=== PATIENT | female | born 1935 | race Caucasian/White ===

== ENCOUNTER 2019-06-06 21:03 | Inpatient (IN) | payer MEDICARE, OTHER ==
[~2019-06-06] VITALS: Ht 165.1 cm; Wt 65.5 kg
[~2019-06-06 21:03] MED LIST: ADVIL PM CAPLE1 EACH PO; ADVIL200 M1 PO; ALENDRONATE SOD70 MG PO; ALIVE WOMEN'S1 EAC1 PO; LETROZOLE2.5 MG PO; MELATONIN1 MG PO; MIRALAX17 GM PO; NORCO 5-325 TA1 EACH PO; OXYCODON-ACETA1 EAC2 PO; VITAMIN D1000 UNI1 PO
[2019-06-06] MEDS ORDERED: TAMOXIFEN CITRA20 MG PO (23:03)
--- NOTE | 2019-06-06 23:03 | NUR ---
ENROLLED AGENT WAS CALLED IN AFTER PT WAS BROUGHT IN FOR STROKE SYMPTOMS. 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 INITIALLY I WAS CALLED IN IN CASE PT WAS SENT OUT OF HOSPITAL FOR CARE ELSEWHERE. I CAME IN TO MAKE SURE THAT THE PT'S DAUGHTER HAD THE CARE THAT SHE NEEDED. 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 PT IS DOING WELL EMOTIONALLY AT THIS POINT AND HAD SOME VISITORS WELL. PER THE PT'S REQUEST I LET HER FAMILY KNOW WHAT WAS GONIG ON, INCLUDING THAT SHE WOULD BE STAYING AT LEAST OVERNIGHT. I WILL HAVE THE IN HOUSE ENROLLED AGENT CONTACT THE PT AND HER FAMILY TOMORROW.
--- NOTE | 2019-06-06 23:46 | NUR ---
PT ADMITTED TO ROOM 120 VIA STRETCHER FROM ED. PT TRANSFERRED WITH 1 ASSIST TO BED, SLIGHT GAIT ON L SIDE NOTED, SPEECH CLEAR, ANSWERING CORRECTLY, MINOR L SIDED MOUTH DROPPINES NOTED. TELE#[address], DENIES SOB OR CP , COOPERATIVE WITH ASSESSMENT. ORIENTED TO HOSP ROOM AND ROUTINE. CONCERNED ABOUT TAMOXIFEN MEDS NOT BEING TAKEN TONIGHT, RADHA SENT TO RX AND FOR MD TO ASSESS IN AM. PT AWARE TO CALL IF NEEDING TO GET UP, STATED UNDERSTANDING
--- NOTE | 2019-06-07 00:25 | NUR ---
TOOK OVER FOR RODNEY BOXING INSPECTOR TO DO INTAKE ASSESSMENT. PATIENT SAYS, SHE FEELS BASICALLY BACK TO NORMAL, OTHER THAN SOME SLIGHT LEFT FACIAL DROOP AND A LITTLE NUMBNESS ON THE LEFT SIDE OF HER TOUNGE. A+O, HAVING NO PAIN, MOVES WELL AND JUST WANTS TO TRY AND GET SOME SLEEP.
--- NOTE | 2019-06-07 01:16 | NUR ---
PATIENT JUST CALLED TO GO TO THE BATHROOM. DECEMBER, LIVE HELPING PATIENT TO THE REST ROOM WITH A FWW.
--- NOTE | 2019-06-07 03:25 | NUR ---
PATIENT SAYS SHE IS DOING OK, BUT HAS NOT BEEN ABLE TO SLEEP SINCE IT IS A NEW PLACE. HAVING NO DEFICITS AT THIS TIME. INFORMED HER WE WOULD DO VS IN ABOUT AN HOUR. PATIENT VERBALIZED UNDERSTANDING.
--- NOTE | 2019-06-07 05:15 | NUR ---
PATIENT HAS DONE WELL SINCE ARRIVAL JUST A LITTLE LEFT FACIAL DROOP AND SOME SLIGHT NUMBNESS ON THE LEFT SIDE OF THE TOUNGE. PATIENT HASN'T REALLY SLEPT SHE IS IN A NEW PLACE AND IS USING A WALKER FOR SAFETY EVEN THOUGH SHE IS PRETTY STEADY ON HER FEET. HAVING NO PAIN AND ALERT AND ORIENTED AND HER B/P HAS COME DOWN. JUST RESTING IN BED AWAKE AT THIS TIME.
--- NOTE | 2019-06-07 07:04 | NUR ---
PATIENT WAS JUST UP TO THE BATHROOM AND HER SPEECH IS A LITTLE SLURRED THIS AM AND SHE HAS CRAMPING IN HER LEGS AND SEEMS TOO BE PROTECTING HER LEFT ARM, AND IT LOKS LIKE SHE IS HAVING A LITTLE BIT OF A HARD TIME USING IT. WILL PASS THIS ON NOW IN REPORT, PATIENT SAYS HER VISION IS FINE TO THE LEFT AND THAT SHE CAN SEE TO HER LEFT PERIPHHERALLY, BUT I'M NO SURE HOW WELL.
--- NOTE | 2019-06-07 07:36 | NUR ---
PATIENT RESTING IN BED. PATIENT'S BREAKFAST ORDERED. CALL LIGHT WITHIN REACH. NO OTHER NEEDS AT THIS TIME
--- NOTE | 2019-06-07 07:53 | NUR ---
PATIENT AWAKE AND LAYING IN BED. ASSESSMENT COMPLETED. PATIENT HAS LEFT SIDED FACIAL DROOP, PAIN ON THE LEFT SIDE OF HER TONGUE, LEFT SIDED WEAKNESS IN HER UPPER AND LOWER EXTREMITIES, SLURRED SPEECH, AND UNABLE TO COMPLETE A FINGER NOSE PROPRIOCEPTIVE TEST ON HER LEFT SIDE. HER BP IS 172/78 (100), PULSE OF 70, TEMP OF 97.8, AND SPO2 OF 96% ON RA. DR. CRAFT NOTIFIED OF PATIENT CONDITION AND RESPONDS THAT HE WILL BE TO THE FLOOR TO SEE THE PATIENT.
--- NOTE | 2019-06-07 08:15 | NUR ---
DR. CRAFT TO BEDSIDE TO ASSESS PATIENT. PLAN OF CARE DISCUSSED WITH PATIENT. NEW ORDERS RECEIVED. PATIENT AGREEABLE TO POC. CALL LIGHT WITHIN REACH.
--- NOTE | 2019-06-07 09:00 | NUR ---
PATIENT UP TO CHAIR FOR BREAKFAST, ATE 50% OF MEAL. NURSE BEDSIDE SWALLOW EVAL PERFORMED. PATIENT WITH MILD DYSPHAGIA AND ASPIRATION PRECAUTIONS INITIATED. PATIENT DENIES ANY FURTHER NEEDS AT THIS TIME, CALL LIGHT WITHIN REACH.
--- NOTE | 2019-06-07 09:15 | NUR ---
PATIENTS DAUGHTER SHANNON CALLED FOR UPDATE ON PATIENT. CONDITION AND PLAN OF CARE DISCUSSED.
--- NOTE | 2019-06-07 09:18 | NUR ---
PATIENT SITTING UP IN CHAIR. VITAL SIGNS AND I&O DONE. CALL LIGHT WITHIN REACH. NO OTHER NEEDS AT THIS TIME
--- NOTE | 2019-06-07 09:50 | NUR ---
SPOKE WITH PATIENT IN ROOM. PATIENT UP IN CHAIR, WITH BREAKFAST TRAY IN FRONT OF HER. PATIENT WAS CRYING WHEN I ENTERED ROOM. PATIENT FEELING OVERWHELMED WITH DIAGNOSIS. SAT WITH PATIENT FOR ABOUT 30 MINUTES TALKING ABOUT DIAGNOSIS, WHAT TO EXPECT NEXT, THERAPY POSSIBILITIES ETC. PATIENTS DISTRESS COMES MOSTLY FROM HER WORRY OVER HER DAUGHTER. 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 SHE STATES SHE GOES TO HER HOUSE FOR 2-3 HOURS A DAY. DISCUSSED SHE MAY NEED TO TAKE A BREAK FROM THIS DURING HER RECOVERY. SHE STATES HER DAUGHTER HAS A FRIEND COMING UP TODAY. DISCUSSED THEY SHOULD TALK WITH OTHER FAMILY, FRIENDS, OR THERE ARE CAREGIVERS TO HIRE IF NEEDED. SHE STATES THEY HAVE INFORMATION AND FAMILY IS HELPING. PATIENT LIVES ALONE. HER HOME HAS 14 STEPS WITH RAILS TO ENTRY. ONCE IN SIDE SHE LIVES ON ONE LEVEL. SHE DOES NOT USE ANY ASSISTIVE DEVICES. SHE DOES HAVE A WALKER IN STORAGE. PATIENT WISHES TO RETURN HOME AT DISCHARGE. PATIENT HAS A PCP SHE FEELS COMFORTABLE WITH FOR FOLLOW UP. DISCUSSED FOR HER TO ASK QUESTIONS OF ANYTHING SHE ISN'T UNDERSTANDING. DISCUSSED TO KNOW WHAT TESTS RESULTS AND SUGGESTED MEDICATIONS AND TREATMENT ARE. QUESTIONS ANSWERED. ASKED IF PATIENT WOULD LIKE PASTORAL CARE TO COME IN, STATES SHE ALREADY TALKED WITH SOMEONE. PT DENIES NEEDING ANYTHING AT THIS TIME. WILL CONTINUE TO FOLLOW.
--- NOTE | 2019-06-07 10:30 | NUR ---
OT IN ROOM WORKING WITH PATIENT.
--- NOTE | 2019-06-07 12:01 | EKG ---
[facility] [address] [facility] [address] [place], [place] [address] Signed Normal sinus rhythm Normal ECG No previous ECGs available Confirmed by STACY CRAFT MD ([id number]) on 06/07/2019 12:01:41 PM Electronically Signed By: STACY CRAFT MD 06/07/19 1201 PATIENT NAME: ASA VENEGAS Electrocardiogram DATE OF : 39 PHYSICIAN: STACY CRAFT MD REPORT #: [id number] REPORT IS CONFIDENTIAL AND NOT TO BE RELEASED WITHOUT AUTHORIZATION
--- NOTE | 2019-06-07 13:00 | NUR ---
PT IN ROOM WORKING WITH PATIENT.
--- NOTE | 2019-06-07 15:30 | NUR ---
OUTPATIENT PHYSICAL THERAPY CALLED FOR SPEECH EVAL. CLINIC CLOSED TODAY AND DR NOTIFIED.
--- NOTE | 2019-06-07 18:41 | NUR ---
PATIENT AMBULATED TO CHAIR WITH FWW AND SBA. DINNER DELIVERED. PATIENT STATES "IM POCKETING FOOD IN MY GUMS ON MY LEFT SIDE." PATIENT EDUCATED TO FOCUS CHEWING TO RIGHT SIDE OF MOUTH, TAKE SMALL BITES, AND ALERT NURSING STAFF IF ANY FOOD BECOMES POCKETED. PATIENT DIET MODIFIED TO A MINCED MOIST. PATIENT DENIES ANY FURTHER NEEDS AT THIS TIME, CALL LIGHT WITHIN REACH.
--- NOTE | 2019-06-07 18:56 | NUR ---
PATIENT WAS ABLE TO GET SEVERAL HOURS OF SLEEP THIS AFTERNOON. REPORTED A 4/10 HEADACHE THIS MORNING, R/T TO CHRONIC NECK ISSUES. TYLENOL PROVIDED. NEURO CHECKS Q4 WITH NO CHANGE FROM THIS MORNINGS ASSESSMENT. DIET CHANGED TO MINCE MOIST DUE TO PATIENT WITH SLIGHT DYSPHAGIA AND POCKETING ON LEFT SIDE. ASPIRATION PRECAUTIONS IN PLACE. DR CRAFT NOTIFIED AND DIET CHANGED TO PUREED DIET. PATIENT SALINE LOCKED AT THIS TIME, DRINKING QS. VOIDING WELL, PATIENT CONTINENT OF URINE AND BOWEL.
--- NOTE | 2019-06-07 19:49 | NUR ---
REPORT RECEIVED FROM MARITZA RN, PT IN CHAIR, ATE 20% DINNER, MINCED MEAD, ASPIRATION PRECAUTIONS INPLACE, BACK TO BED, SLIGHTLY UNSTEADY L LEG, SELF SPLINTING LIKE MOTION OF L ARM, GOOD CMS, SPEEACH SLIGHTLY SLURRED, L MOUTH DROOPINESS NOTED, DENIES CP, OR SOB, TELE#[address]
--- NOTE | 2019-06-07 21:03 | NUR ---
Up in bed, cooperative with assessment, aspiration precautions inplace, able to swallow meds well, no pocketing in l side of buccal area noted. Continues to have slight L sided deficit. Speeach much beeter, L sided droopiness still present. Bed alarm on, Fall precautions in place. Tele#[address], NSR rhythm. fluids and call light at bedside.
--- NOTE | 2019-06-07 23:37 | NUR ---
REESTING, EYES CLOSED. TELE#[address], BED ALARM ON, CALL LIGHT AT BEDSIDE
--- NOTE | 2019-06-08 01:11 | NUR ---
resting, no distress, on room air. call light at bedside, tele#9 SR. Call light at bedside
--- NOTE | 2019-06-08 02:52 | NUR ---
Resting, no c/o ain, no distress, Tele#[address] call light at bedside
--- NOTE | 2019-06-08 05:26 | NUR ---
Pt awake, up to br, voided back to bed, tolerated well. Up q 1PA/FWW. L sided deficit, slow unsteady gait. L arm weak valving machine operator, and pt has been slef splinting like L arm, slightly stiff with movement. c/o numbness and tingling L arm, Pt denies any visual problems but seems to hover her L hand over walker and when trying to reach for objects, Speech continues to be slightly slurred at times and L mouth droopines present. Pt is an aspiration and fall precautions. on Pureed chopped foods and low Na diet. Pt has been unable to clear food from L sided of her mouth. No cough noted when drinking water at this tinme. Compleand with POC, follows instructions well, on room air. Tele#[address], SR, denies cp or sob. Concerned about daughter who has MS and this pt is her primary caregiver, reassured, has slept 4 hrs this shift. Medicated with Tylenol per c/o r back of head pain, Ice packet given too with good pain relief. Denies c/o pain at this time
--- NOTE | 2019-06-08 08:55 | NUR ---
PATIENT SITTING UP IN BED, AWAKE AND ALERT. PATIENT STATES "I SLEPT VERY WELL." AN ICE PACK WAS PLACED ON THE BACK OF HER NECK OVERNIGHT WHICH HELPED HER SLEEP WELL. PATIENT AMBULATED TO CHAIR WITH FWW AND SBA. WARM BLANKET PROVIDED. BREAKFAST ORDERED. NEURO ASSESSMENT COMPLETED. AM MEDICATIONS ADMINISTERED WITH ASPIRATION PRECAUTIONS IN PLACE. PATIENT DENIES ANY FURTHER NEEDS AT THIS TIME, CALL LIGHT WITHIN REACH.
--- NOTE | 2019-06-08 09:46 | NUR ---
PATIENT WORKING WITH PT. AMBULATED BACK TO BED IN SEMI-FOWLERS WATCHING TV. VS TAKEN. SALINE LOCKED. DENIES ANY FURTHER NEEDS AT THIS TIME, CALL LIGHT WITHIN REACH.
--- NOTE | 2019-06-08 14:36 | NUR ---
PATIENT SITTING IN CHAIR WITH DAUGHTER, SHANNON, VISITING. WARM BLANKET AND PILLOW UNDER THE LEGS PROVIDED. ASSESSMENT COMPLETE. TRACE MILKSHAKE ORDERED. DENIES ANY FURTHER NEEDS AT THIS TIME, CALL LIGHT WITHIN REACH.
--- NOTE | 2019-06-08 15:39 | NUR ---
PT IS IN THE SHOWER, INDEPENDENTLY. PT WILL CALL WHEN SHE IS DONE.
--- NOTE | 2019-06-08 19:10 | NUR ---
RECEIVED REPORT ON pt. RESTING IN BED. WHITEBOARD UPDATED. CALL LIGHT WITHIN REACH.
--- NOTE | 2019-06-08 20:30 | NUR ---
VISITOR JUST LEFT. pt ALERT AND ORIENTED. UP TO TOILET AND BACK TO BED. 1PA. SLIGHT WEAKNESS IN LEFT ARM, REPORTED "POPPING" WHEN REACHING BACK WITH LEFT ARM. DENIES PAIN. STEADY ON FEET. ASSESSMENT DONE. VITALS AND I&O RECORDED. MEDICATIONS GIVEN (SEE MAR). BLOOD PRESSURE ELEVATED ABOVE LAST BP. pt REQUESTED IT BE RECHECKED AFTER SOME TIME TO RELAX. WILL CONTINUE TO MONITOR. CALL LIGHT WITHIN REACH.
--- NOTE | 2019-06-08 21:31 | NUR ---
RETOOK BLOOD PRESSURE PER pt REQUEST. pt RELAXING IN BED. DISCUSSED AROMA THERAPY AND ENCOURAGED REST. NO REQUESTS AT THIS TIME. POSSESSIONS AND CALL LIGHT WITHIN REACH.
--- NOTE | 2019-06-08 23:28 | NUR ---
ROUNDED ON pt. RESTING WITH EYES CLOSED, RESPIRATIONS REGULAR AND UNLABORED. CALL LIGHT WITHIN REACH.
--- NOTE | 2019-06-09 00:49 | NUR ---
CALL LIGHT ON. pt UP TO TOILET AND BACK TO BED. LEFT ARM "POPPED" PER pt. ICE PACK APPLIED AND PILLOW TO BRACE pt FROM SLEEPING ON LEFT SIDE PER REQUEST. CALL LIGHT WITHIN REACH.
--- NOTE | 2019-06-09 03:02 | NUR ---
ROUNDED ON pt. RESTING WITH EYES CLOSED, RESPIRATIONS REGULAR AND UNLABORED. CALL LIGHT WITHIN REACH.
--- NOTE | 2019-06-09 05:54 | NUR ---
ASSESSMENT DONE. pt UP TO TOILET AND BACK TO BED. VITALS AND I&O RECORDED. NO REQUESTS AT THIS TIME. CALL LIGHT WITHIN REACH.
--- NOTE | 2019-06-09 05:56 | NUR ---
pt RESTED MOST OF SHIFT. LEFT SIDED FACIAL DROOP AND WEAKNESS IN LEFT ARM, UNSTEADY GAIT. 1PA FWW. IV SL. TOLERATING MINCED & MOIST DIET. ICE PACK FOR NECK. ON CYTOTOXIC PRECAUTIONS PER PROTOCOL. USES CALL LIGHT APPROPRIATLEY.
--- NOTE | 2019-06-09 07:37 | NUR ---
0710: REPORT RECIEVED FROM KRISTIE HEWITT. PT RESTING IN HER BED AND WAS ASSISTED TO HER CHAIR PER HER REQUEST. CALL CHAUDHARY AND PERSONAL ITEMS WITHIN REACH.
--- NOTE | 2019-06-09 08:56 | NUR ---
PT WORKING WITH PHYSICAL THERAPY AT THIS TIME.
--- NOTE | 2019-06-09 09:22 | NUR ---
PT JUST FINISHED WITH PHYSICAL THERAPY AND SHE STATES THAT SHE IS GETTING STRONGER. HER PAIN IN HER LEFT SHOULDER AND LEFT KNEE IS ACCEPTABLE TO HER AT THIS TIME BUT WAS GIVEN SOME ASPERCREME PER HER REQUEST. PT IS ALERT AND ORIENTED AND SHE STATES SHE WILL CALL BEFORE ATTEMPTING TO GET UP. SHE IS RESTING IN HER CHAIR AND WATCHING TV WITH HER CALL CHAUDHARY WITHIN REACH.
--- NOTE | 2019-06-09 09:43 | NUR ---
PT SITTING UP IN HIS CHAIR WATCHING TV AT THIS TIME AND HE STATES THAT HIS PAIN REMAINS UNDER CONTROL.
--- NOTE | 2019-06-09 10:37 | NUR ---
Pt sleeping at this time.
--- NOTE | 2019-06-09 11:15 | NUR ---
PT STATES SHE HAS SOME POSTERIOR NECK PAIN SHE BELIEVES SHE SLEPT ON IT WRONG. PT MEDICATED WITH TYLENOL FOR PAIN ORDERED.
--- NOTE | 2019-06-09 13:34 | NUR ---
PT WATCHING TV WITH NO NEW COMPLAINTS. SHE STATES HER PAIN IS WELL CONTROLED IN HER NECK STATING IT IS NOW A 1/10 AND THE LEFT SHOULDER AND LEFT KNEE PAIN IS GONE. SHE CONTINUES TO HAVE LEFT SIDED FACIAL DROOP BUT STATES THAT SHE FEELS THAT HER STRENGTH IS INCREASING. PT DECLINES A SHOWER STATING SHE HAD ONE YESTERDAY.
--- NOTE | 2019-06-09 14:18 | NUR ---
PT RESTING IN BED, AWAKE AND ALERT TALKING ON HER CELL PHONE. STATES SHE HAS NO NEEDS AT THIS TIME.
--- NOTE | 2019-06-09 14:47 | NUR ---
Pt reading a book at this time.
--- NOTE | 2019-06-09 17:47 | NUR ---
Pt sitting in her chair and just finished eating dinner. She denies any problems chewing or swallowing.
--- NOTE | 2019-06-09 19:00 | NUR ---
BEDSIDE REPORT RECEIVED FROM OFFGOING RNMARCE. PT RESTING IN BED.
--- NOTE | 2019-06-09 20:00 | NUR ---
VISITOR AT PT'S BEDSIDE. PT RESTING IN BED. CALL LIGHT IN REACH. ROOM IN VIEW OF RN STATION.
--- NOTE | 2019-06-09 21:51 | NUR ---
PT ASSESSMENT COMPLETE. PT RATES PAIN 2/10 TO BACK OF NECK, L UPPER ARM, L KNEE. PT DENIES NAUSEA OR SOB. PT REPORTS SLIGHT ANXIETY THIS EVENING. PRN ASPERCREAM APPLIED TO AREAS OF SORENESS. ICE PACK APPLIED TO NECK. L FACIAL DROOP PRESENT, SMILE UNEVEN. L ARM AND L LEG WITH SLIGHT WEAKNESS. PT REPORTS SHE FEELS THIS IS IMPROVING. PT UP TO BATHROOM AND BACK TO BED WITH 1 PA. PT TOLERATED WELL. PT DENIES FURTHER NEEDS AT THIS TIME. CALL LIGHT WITHIN REACH.
--- NOTE | 2019-06-09 23:01 | NUR ---
PT UTILIZES CALL LIGHT, REQUESTS TYLENOL FOR 3/10 PAIN TO NECK AND UPPER L ARM. STATES THAT ASPERCREAM WAS HELPFUL. PT UP READING BOOK IN BED. DENIES FURTHER NEEDS AT THIS TIME. CALL LIGHT IN REACH.
--- NOTE | 2019-06-10 01:02 | NUR ---
PT RESTING IN BED, LYING ON R SIDE. PT DOES NOT ROLL OVER WHEN GUILLOTINE OPERATOR OPENS THE DOOR. RESPIRATIONS ARE EVEN AND UNLABORED. PT APPEARS TO BE SLEEPING. CALL LIGHT IN REACH. ROOM IN VIEW OF RN STATION.
--- NOTE | 2019-06-10 03:20 | NUR ---
PT ASSESSMENT COMPLETE. PT ASSISTED TO BATHROOM AND BACK TO BED WITH 1 PA. GAIT REMAINS SLIGHTLY UNSTEADY. PT REPORTS PAIN/DISCOMFORT TO L UPPER ARM CONTINUES, STATES THAT THIS IS TOLERABLE AT THIS TIME. PT DENIES NAUSEA OR SOB. SLIGHT L FACIAL DROOP REMAINS. L METAL TURNER SLIGHTLY MORE WEAK THAN R. NO NOTICABLE DIFFERENCE NOTED BETWEEN L AND R LEG STRENGTH. PT DENIES FURTHER NEEDS AT THIS TIME. CALL LIGHT IN REACH. ROOM IN VIEW OF RN STATION.
--- NOTE | 2019-06-10 06:10 | NUR ---
PT SLEPT WELL THIS SHIFT. ASPERCREAM AND TYLENOL FOR PAIN. L FACIAL DROOP, LUE WEAKNESS. CYTOTOXIC PRECAUTIONS D/T CA MEDS. UO QS. IV SL. 1 PA WITH FWW. GAIT UNSTEADY. WORKING WITH PT/OT. ECHO AND SPEECH EVAL ORDERED.
--- NOTE | 2019-06-10 07:40 | NUR ---
RECIEVED BEDSIDE REPORT FROM KASH KIM. PT IS AWAKE AND ALERT IN BED. PARK ACTIVITIES COORDINATOR IN TO DO ECHO. PT REPORTS FEELING BETTER.
--- NOTE | 2019-06-10 09:15 | NUR ---
SPOKE WITH PATIENT IN ROOM. DISCUSSED POSSIBLE STAY FOR TRANSITIONAL CARE PROGRAM TO CONTINUE THERAPY TO BE BETTER PREPARED TO BE HOME SAFELY. 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 DISCUSSED TRANSIONAL CARE PROGRAM INCLUDING INSURANCE COVERAGE, DAILY THERAPY PARTICIPATION, WEEKLY MDT AND GOALS. PATIENT IS INTERSTED AND STATES SHE IS CONCERNED ABOUT GOING HOME TO QUICKLY. QUESTIONS ANSWERED. WILL CONTINUE TO FOLLOW.
--- NOTE | 2019-06-10 11:40 | NUR ---
PATIENT UP TO BATHROOM, SBA. CALL LIGHT IN REACH. NO FURTHER NEEDS AT THIS TIME.
== END 2019-06-10 11:59 | disposition swing bed (61) | DRG 66 ==
LOC: ED 21:03 → MS 21:04
PROVIDERS: ADMIT Internal Medicine
DX: I63.9 Cerebral infarction, unspecified (principal); R47.1 Dysarthria and anarthria; R29.810 Facial weakness; G83.24 Monoplegia of upper limb affecting left nondominant side; R26.81 Unsteadiness on feet; I10 Essential (primary) hypertension; I67.1 Cerebral aneurysm, nonruptured; C50.912 Malignant neoplasm of unspecified site of left female breast; R29.709 NIHSS score 9; R40.2362 Coma scale, best motor response, obeys commands, at arrival to emergency department; R40.2142 Coma scale, eyes open, spontaneous, at arrival to emergency department; R40.2252 Coma scale, best verbal response, oriented, at arrival to emergency department; Z17.0 Estrogen receptor positive status [ER+]; Z88.2 Allergy status to sulfonamides; Z79.810 Long term (current) use of selective estrogen receptor modulators (SERMs)
CPT/HCPCS: 70450; 70496; 70498; 71045; 80053; 80061; 83036; 84484; 85025; 85610; 85730; 90662; 92610; 93005; 93010; 93306; 97110; 97112; 97116; 97161; 97166; 99285-25; J1650; Q9967

== ENCOUNTER 2019-06-10 12:00 | Inpatient (IN) | payer MEDICARE, OTHER ==
[~2019-06-10] VITALS: Ht 165.1 cm; Wt 65.3 kg
[~2019-06-10 12:00] MED LIST changes: +TAMOXIFEN CITRA20 MG PO
--- NOTE | 2019-06-10 13:45 | NUR ---
PATIENT SITTING IN CHAIR TALKING TO RN. CALL LIGHT IN REACH. NO FURTHER NEEDS AT THIS TIME.
--- NOTE | 2019-06-10 14:00 | NUR ---
DISCUSSED TRANSITIONAL CARE BED PROGRAM WITH PATIENT THIS MORNING. WILL CONTINUE TO FOLLOW.
--- NOTE | 2019-06-10 14:52 | NUR ---
PT WORKING WITH Ildefonso.-WILL CHECK BACK LATER.
--- NOTE | 2019-06-10 19:10 | NUR ---
CHARGE NURSE REPORT RECEIVED. PT IN BED, HAPPY TO BE IN ROOM WITH WINDOW VIEW.
--- NOTE | 2019-06-10 21:10 | NUR ---
REQUESTED BY MED/DAIRY STORE MANAGERKASH KIM TO RETRIEVE PATIENT MEDICATION TAMOXIFEN CITRATE 20MG PO FOR 2100 DOSAGE ADMINISTRATION. MEDICATION NOT AVAILABLE IN PATIENTS KITS LIST. MEDICATION NOT AVAILABLE PER PYXIS. NOTIFIED ON-CALL PHARMACIST SARITHA AND INSTRUCTED TO RESCHEDULE FOR AM. NOTIFIED EGG BREAKERKASH CAMPOS AND PATIENTS PRIMARY NURSE JUDY HEWITT.
--- NOTE | 2019-06-10 21:21 | NUR ---
PT ASSESSMENT COMPLETE. PT RESTING IN BED WATCHING TV. PT RATES PAIN 1-2, STATES THAT THIS IS TOLERABLE. PRN ASPERCREME APPLIED PER REQUEST TO NECK, L ARM, AND L KNEE. PT DENIES NAUSEA OR SOB. SLIGHT FACIAL DROOPT O L SIDE NOTED. VERY MILD LEFT RADIATION ENGINEER STRENGTH WEAKNESS, AND SLIGHT TROUBLE BRINGING L FINGERTIP TO NOSE NOTED. PT DENIES FURTHER NEEDS AT THIS TIME, CALL LIGHT WITHIN REACH.
--- NOTE | 2019-06-10 21:25 | NUR ---
NOTIFIED DR CRAFT PER PHONE OF THE MEDICATION TAMOXIFEN CITRATE NOT BEING AVAILABLE, AND THAT SURVEYOR OIL WELL DIRECTIONAL CONTACTED SARITHA, PHARMACY. DR CRAFT STATED THAT MISSING A DOSE IS ACCEPTABLE AND RESUME DOSE AT SCHEDULED TIME 06/11/19 @ 2100. SURVEYOR OIL WELL DIRECTIONAL AWARE, IS PRIMARY RN.
--- NOTE | 2019-06-10 23:29 | NUR ---
PT RESTING IN BED WITH EYES CLOSED. PT LAYING ON HER R SIDE. RESPIRATIONS EVEN AND UNLABORED. PT DOES NOT WAKE WHEN MUSIC PRODUCER ENTERS THE ROOM, APPEARS TO BE SLEEPING. CALL LIGHT IN REACH.
--- NOTE | 2019-06-11 02:17 | NUR ---
PT RESTING IN BED WITH EYES CLOSED. RESPIRATIONS EVEN AND UNLABRED. PT RESTING ON L SIDE. DOES NOT WAKE WHILE MEDICATION RECONCILIATION TECHNICIAN IN DOORWAY. CALL LIGHT IN REACH.
--- NOTE | 2019-06-11 04:30 | NUR ---
PT UTILIZES CALL LIGHT TO USE THE BATHROOM. REPORTS PAIN, 4/10, TO LUE. PRN TYLENOL ADMINISTERED AND PRN ASPERCREME APPLIED. PT DENIES FURTHER NEEDS AT THIS TIME. CALL LIGHT IN REACH.
--- NOTE | 2019-06-11 05:40 | NUR ---
PT SLEPT WELL THIS SHIFT. TYLENOL AND ASPERCREME FOR PAIN. L FACIAL DROOP, LUE WEAKNESS. 1PA WITH FWW. PT UNSTEADY AT TIMES. NO IV ACCESS. UO QS. CYTOTOXIC PRECAUTIONS. BM THIS SHIFT.
--- NOTE | 2019-06-11 07:24 | NUR ---
BEDSIDE REPORT..PT RESTING IN BED ALERT AND ORIENTED PT GAVE BREAKFAST ORDER. NO COMPLAINTS OR CONCERNS AT THIS TIME.
--- NOTE | 2019-06-11 08:16 | NUR ---
MED REC COMPLETE
--- NOTE | 2019-06-11 10:13 | NUR ---
PT WALKED HALLWAY WITH pt. PT HAS NO NEEDS AT THIS TIME.
--- NOTE | 2019-06-11 11:39 | NUR ---
PT BACK TO BED AFTER WORKING WITH PHYSICAL THERAPY.
--- NOTE | 2019-06-11 13:25 | NUR ---
PT IS WITH THERAPY.
--- NOTE | 2019-06-11 13:52 | NUR ---
PT LAYING IN BED RESTING. SHE WELCOMED ME IN AND I SAT DOWN BESIDE HER SHE SEEMED TO RELAX SOME. WE VISITED, EMOTIONS BEGAN TO FLOW AND SHE SAID THAT IT WAS BECAUSE OF THE STROKE. SPOKE CLEARLY, MOST OF THE TIME. WHEN SHE HAD TROUBLE WITH HER WORDS, SHE WOULD STOP AND COLLECT HERSELF AND PROCEDE. PT IS CONCERNED ABOUT HER ADULT DAUGHTER AT HOME-PT IS HER PPG. PT MENTIONED A GOOD FRIEND THAT WAS GOING THROUGH HEALTH ISSUES, AND SHE GOT EMOTIONAL AGAIN. GAVE PT A PRAYER SHAWL, PRAYED WITH HER AND WILL FOLLOW NEEDED
--- NOTE | 2019-06-11 14:52 | NUR ---
CHECKED BACK WITH PT-GAVE HER Alex ALEXANDRE. SHE WAS VERY TOUCHED. WILL CONTINUE TO FOLLOW NEEDED
--- NOTE | 2019-06-11 18:06 | NUR ---
PT HAS BEEN UP TO WORK WITH THERAPIES TODAY. SHE REPORTS DISCOMFORT IN HER ABD FROM TAKING BOWEL CARE MEDICATIONS 06/10/19. PT IS MAKING GOOD PROGRESS WITH THERAPIES. DIET ADVANCED TO REGULAR TODAY PER S.T., PT TOLERATING WELL.
--- NOTE | 2019-06-11 19:58 | NUR ---
RECEIVED REPORT FROM DAY SHIFT RN. PATIENT IS RESTING IN BED. PATIENT DENIES ANY NEEDS AT THIS TIME. CALL LIGHT IN REACH.
--- NOTE | 2019-06-11 21:26 | NUR ---
PATIENT ASSESMENT COMPLETED. PATIENTS EVENING MEDICATIONS GIVEN PER ORDER. PATIENT RATES PAIN AT A 2/10 IN HER LEFT KNEE, LEFT ARM, AND NECK. PATIENT GIVEN PRN ASPERCREME AND PRN TYLENOL PER ORDER. PATIENTS VITALS TAKEN AND RECORDED. INTAKE AND OUPUT RECORDED. PATIENT ASSISTED TO THE RESTROOM. PATIENT IS A SBA. PATIENT WAS ABLE TO VOID. PATIENT IS NOW BACK IN BED RESTING. PATIENT DENIES ANY FURTHER NEEDS. CALL LIGHT IN REACH.
--- NOTE | 2019-06-12 00:49 | NUR ---
PATIENT IS RESTING IN BED WITH EYES CLOSED, RR 17. CALL LIGHT IN REACH.
--- NOTE | 2019-06-12 03:10 | NUR ---
PATIENT IS RESTING IN BED WITH EYES CLOSED, RR 17. CALL LIGHT IN REACH.
--- NOTE | 2019-06-12 04:36 | NUR ---
PATIENT ASSISTED TO THE RESTROOM. PATIENT IS A SBA. PATIENT WAS ABLE TO VOID. PATIENT IS NOW BACK IN BED RESTING. PATIENTS INTAKE AND OUPUT RECORDED. PATIENT DENIES ANY FURTHER NEEDS. CALL LIGHT IN REACH.
--- NOTE | 2019-06-12 05:05 | NUR ---
PATIENT RESTED WELL THROUGHOUT THE SHIFT. PATIENT IS ON A REGULAR DIET, TOELRATING IT WELL, AND NO COMPLAINTS OF NASUEA. PATIENT IS A SBA-1PA. PATIENT IS WORKING WITH ST/OT/PT. PATIENT HAS NO IV. PATIENT IS ON RA. PATIENT IS ON SWING BED STATUS. PATIENT IS AAOX3 AND USES CALL LIGHT APPROPRIATELY.
--- NOTE | 2019-06-12 06:05 | NUR ---
PATIENT IS RESTING IN BED WITH EYES CLOSED, RR17. CALL LIGHT IN REACH.
--- NOTE | 2019-06-12 08:45 | NUR ---
patient up to bathroom with one person assist and then to shower with shower chair. call cord in reach.
--- NOTE | 2019-06-12 09:32 | NUR ---
PATIENT SITTING UP IN CHAIR WATCHING TV. AM MEDICATIONS GIVEN, ASSESSMENT COMPLETE, VITAL SIGNS TAKEN. PATIENT AMBULATED TO TOILET WITH SBA, VOIDING WELL. PATIENT AMBULATED TO CHAIR WITH SBA, DENIES ANY FURTHER NEEDS. CALL LIGHT WITHIN REACH.
--- NOTE | 2019-06-12 13:56 | NUR ---
PT SITTING IN CHAIR, DOZING BUT WOKE QUICKLY TO MY VOICE. SHE WELCOMED ME IN AND SAID SHE WAS TIRED. SHE FEELS SHE HAS BEEN WORKING HARD, THIS AM AND HAS TAKEN ALOT OUT OF HER.SHE AGAIN THANKED ME FOR HER P.SHAWL. WILL CONTINUE TO FOLLOW NEEDED
--- NOTE | 2019-06-12 15:16 | NUR ---
PATIENT SITTING IN CHAIR READING BOOK AND WATCHING TV. PATIENT DENIES ANY PAIN. DENIES ANY FURTHER NEEDS AT THIS TIME, CALL LIGHT WITHIN REACH.
--- NOTE | 2019-06-12 16:48 | NUR ---
PATIENT UP TO BATHROOM TO VOID WITH STANDBY ASSIST. MEALTIME LIPITOR GIVEN.
--- NOTE | 2019-06-12 17:19 | NUR ---
PATIENT HAD A GOOD DAY. DENIED ANY NEEDS. WORKED WITH PT TWICE AND OT ONCE. PATIENT IS A 1 PERSON SBA. RECEIVED A SHOWER THIS MORNING.
--- NOTE | 2019-06-12 19:36 | NUR ---
RECEIVED REPORT FROM DAY SHIFT RN. PATIENT IS RESTING IN BED WATCHING TV. NO NEEDS NOTED. CALL LIGHT IN REACH.
--- NOTE | 2019-06-12 20:27 | NUR ---
PATIENT ASSESMENT COMPLETED. PATIENT ASSISTED TO THE RESTROOM A SBA. PATIENT WAS ABLE TO VOID. PATIENT IS NOW IN BED RESTING. PATIENTS SCHEDULED MEDICATIONS GIVEN PER ORDER. PATIENT GIVEN PRN TYLENOL AND ASPERCREME FOR 2/10 PAIN/ACHE IN LEFT KNEE, LEFT ARM AND NECK. PATIENT REFUSED SENNA. PATIENT EDUCATED ON SENNA. PATIENT CONINUES TO REFUSE. PATIENTS VITALS TAKEN AND RECORDED. INAKE AND OUPUT RECORDED. PATIENT DENIES ANY NEEDS. CALL LIGHT IN REACH.
--- NOTE | 2019-06-12 23:02 | NUR ---
PATIENT IS RESTING IN BED WITH EYES CLSOED, RR 17. CALL LIGHT IN REACH.
--- NOTE | 2019-06-13 00:55 | NUR ---
PATIENT IS RESTING IN BED WITH EYES CLSOED, RR 17. CALL LIGHTIN REACH.
--- NOTE | 2019-06-13 02:33 | NUR ---
PATIENT IS RESTING IN BED WITH EYES CLOSED, RR 16. CALL LIGHT IN REACH.
--- NOTE | 2019-06-13 04:14 | NUR ---
PATIENT IS RESTING IN BED WITH EYES CLOSED, RR 17. CALL LIGHT IN REACH.
--- NOTE | 2019-06-13 04:50 | NUR ---
PATIENT RESTED WELL THROUGHOUT THE SHIFT. PATIENT IS ON A REGULAR DIET, TOELRATING IT WELL, AND NO COMPLAINTS OF NASUEA. PATIENT IS A SBA-1PA. PATIENT IS WORKING WITH ST/OT/PT. PATIENT HAS NO IV. PATIENT IS ON RA. PATIENT IS ON SWING BED STATUS. PATIENT IS AAOX3 AND USES CALL LIGHT APPROPRIATELY. PATIENT GIVEN PRN TYLENOL AND ASPERCREME PER ORDER FOR LEFT KNEE, LEFT ARM AND NECK PAIN.
--- NOTE | 2019-06-13 06:21 | NUR ---
PATIENT ASSISTED TO THE RESTROOM. PATIENT IS A SBA. PATIENT WAS ABLE TO VOID. PATIENT COMPLAINS OF PAIN IN HER LEFT UPPER ARM. PATIENT GIVEN PRN ASPERCREME AND TYLENOL PER ORDER. PATIENT IS BACK IN BED RESTING. PATIENT DENIES ANY FURTHER NEEDS. CALL LIGHT IN REACH.
--- NOTE | 2019-06-13 07:48 | NUR ---
0700: Bedside report recieved from Armaan HEWITT. Pt states she is comfortable at this time and call noonan is within reach.
--- NOTE | 2019-06-13 08:55 | NUR ---
PT DENIES ANY PAIN OR NEW PROBLEMS AT THIS TIME. VITAL SIGNS ARE STABLE AND SHE STATES SHE FEELS THAT SHE IS GETTING MUCH STRONGER. PT GOT UP FROM HER BED AND AMBULATED TO THE CHAIR AND SHE STATES SHE FEELS STEADY. PT NOW WATCHING TV.
--- NOTE | 2019-06-13 09:30 | NUR ---
PATIENT MDT MEETING WITH PATIENT, PT, OT AND MYSELF. PATIENT FEELS SHE IS PROGRESSING. PT AND OT SPOKE ABOUT GOALS AND MOVING ON TO SPECIFIC TASKS. PATIENT FEELS HIGHEST RISK IS DOING TO MUCH AT HOME. SHE IS GLAD TO HAVE THE TIME HERE TO IMPROVE AND BE PATIENT WITH PROGRESS. SHE STATES HER DAUGHTER KNOW HAS CAREGIVERS ARRANGED TWICE A DAY SO SHE WILL NOT BE RETURNING TO DO THIS FOR HER IN THE MORNINGS GOING FORWARD. STATES THEY HAVE TALKED ABOUT SETTING THIS UP BEFORE AND NOW SHE FEELS RELIEF KNOWING HER DAUGHTER IS TAKEN CARE OF. QUESTIONS ANSWERED.
--- NOTE | 2019-06-13 10:40 | NUR ---
Pt just finished working with physical therapy and she states she is doing well.
--- NOTE | 2019-06-13 14:06 | NUR ---
Pt sitting in her chair with no complaints and is watching tv. She states she is having friends come visit from out of town.
--- NOTE | 2019-06-13 14:37 | NUR ---
PT HAS COMPANY FROM [employer]. SHE SEEMS VERY ENGAGED WITH HER GUESTS. EXTENDED A BLESSING, WILL FOLLOW NEEDED
--- NOTE | 2019-06-13 16:34 | NUR ---
Pt states she has some posterior neck pain rated at a 5/10. She reqeusted some aspercreme and ice which were given to the pt as requested, see emar. Pt denies the need for any tylenol at this time.
--- NOTE | 2019-06-13 17:37 | NUR ---
PT SITTING IN HER CHAIR EATING DINNER AND WATCHING TV. SHE STATES THAT HER NECK PAIN IS "MUCH BETTER" AND SHE IS PLEASED WITH THE PAIN CONTROL AT THIS TIME.
--- NOTE | 2019-06-13 19:29 | NUR ---
REPORT RECEIVED, PT RESTING IN BED, AOX4, APPROPRIATE, NO NEEDS AT THIS TIME, CALL LIGHT WITHIN REACH. FALL PRECAUTIONS IN PLACE.
--- NOTE | 2019-06-13 20:32 | NUR ---
VITALS AND I&OS DONE AND CHARTED. PT NEEDS NOTHING AT THIS TIME. BEDSIDE TABLE AND CALL LIGHT IN REACH.
--- NOTE | 2019-06-13 21:03 | NUR ---
CHARGE NURSE ROUNDING. pt RESTING IN BED. NO REQUESTS OR COMPLAINTS. WRIST BANDS IN PLACE. WHITEBOARD UPDATED. CALL LIGHT WITHIN REACH.
--- NOTE | 2019-06-13 21:52 | NUR ---
PT RESTING IN BED, AOX4, APPROPRIATE, PT NOTED TO HAVE SLIGHT LEFT SIDED FACIAL DROOP REMAINING, PT C/O 3/10 NECK PAIN, PRN TYLENOL GIVEN PER EMAR, ICE PACK ALSO PROVIDED, PT DENIES FURTHER NEEDS AT THIS TIME, PT HAS GOOD UPPER/LOWER EXTREMITY STRENGTH, PT DENIES NUMBNESS OR TINGLING, PULSES FELT, PT'S LS CLEAR, NO NEEDS AT THIS TIME, CALL LIGHT WITHIN REACH. FALL PRECAUTIONS IN PLACE. VSS.
--- NOTE | 2019-06-14 03:51 | NUR ---
PT RESTING IN BED, EYES CLOSED, BREATHS EVEN, UNLABORED, NO NEEDS AT THIS TIME, CALL LIGHT WITHIN REACH. FALL PRECAUTIONS IN PLACE.
--- NOTE | 2019-06-14 05:15 | NUR ---
PT AOX4, APPROPRIATE, INDEPENDENT IN ROOM W/FWW, TOLERATING WELL, RECEIVED PRN TYLENOL X1 THIS SHIFT RELATED TO NECK PAIN, PT'S VSS, ON RA, PT SLEPT WELL THIS SHIFT, USES CALL LIGHT APPROPRIATELY.
--- NOTE | 2019-06-14 07:35 | NUR ---
0715: BEDSIDE REPORT RECIVED FROM JULIETH HEWITT. THE PT IS RESTING IN HER BED WITH NO COMPLAINTS OTHER THAN BEING AWAKE SINCE 0245 THIS AM. SHE STATES THAT SHE IS GOING TO ATTEMPT TO TAKE A NAP TODAY. CALL CHAUDHARY WITHIN REACH.
--- NOTE | 2019-06-14 07:50 | NUR ---
PATIENT SITTING UP IN CHAIR. RN IN ROOM. SETS UP BATHROOM FOR SHOWER. LINENS CHANGED. CALL LIGHT WITHIN REACH. NO OTHER NEEDS AT THIS TIME
--- NOTE | 2019-06-14 07:53 | NUR ---
PT SITTING UP IN THE CHAIR EATING BREAKFAST. SHE DENIES ANY PROBLEMS OTHER THAN HAVING MANY LOOSE STOOLS. CALL CHAUDHARY WITHIN REACH.
--- NOTE | 2019-06-14 09:36 | NUR ---
PATIENT AMBULATING IN THE HALLWAY WITH PHYSICAL THERAPIST. I&O DONE
--- NOTE | 2019-06-14 10:16 | NUR ---
PT SITTING IN HER RECLINER AND SHE DENIES ANY PAIN. SHE WAS GIVEN A NEWSPAPER AND IS NOW READING IT.
--- NOTE | 2019-06-14 10:32 | NUR ---
PT WORKING WITH THERAPY AT THIS TIME.
--- NOTE | 2019-06-14 12:48 | NUR ---
PT HAS BEEN KEPT BUSY WITH P.T. MOST OF THE AM. SHE IS PLEASANT, MOTIVATED AND SEEMS TO BE WORKING HARD. GAVE ENCOURAGEMENT, WILL FOLLOW NEEDED
--- NOTE | 2019-06-14 13:26 | NUR ---
Pt resting in her chair and is reading a book. She denies any pain or problems at this time.
--- NOTE | 2019-06-14 13:32 | NUR ---
PATIENT SITTING UP IN CHAIR. I&O DONE. WATER GIVEN. CALL LIGHT WITHIN REACH. NO OTHER NEEDS AT THIS TIME
--- NOTE | 2019-06-14 18:16 | NUR ---
PATIENT SITTING UP IN CHAIR. I&O DONE. CALL LIGHT WITHIN REACH. NO OTHER NEEDS AT THIS TIME
--- NOTE | 2019-06-14 18:42 | NUR ---
Pt sitting in her chair reading and states she has no pain or other problems.
--- NOTE | 2019-06-14 20:11 | NUR ---
REPORT RECEIVED, PT RESTING IN BED, NO NEEDS AT THIS TIME, CALL LIGHT WITHIN REACH.
--- NOTE | 2019-06-14 21:45 | NUR ---
EVENING MEDS ADMINISTERED, PT AOX4, APPROPRIATE, ASSESSMENT COMPLETE, PT STATES THAT SHE FEELS HER STRENGTH IS IMPROVING, PT C/O 01/02 PAIN RELATED TO HER NECK, PRN TYLENOL GIVEN PER EMAR WELL ICE PACK PER REQUEST, PT DENIES FURTHER NEEDS AT THIS TIME, ON RA, VSS, CALL LIGHT WITHIN REACH. FALL PRECAUTIONS IN PLACE.
--- NOTE | 2019-06-14 23:46 | NUR ---
PT RESTING IN BED, EYES CLOSED, BREATHS EVEN, UNLABORED, NO NEEDS AT THIS TIME, CALL LIGHT WITHIN REACH.
--- NOTE | 2019-06-15 02:00 | NUR ---
PT RESTING IN BED, EYES CLOSED, BREATHS EVEN, UNLABORED, NO NEEDS AT THIS TIME, CALL LIGHT WITHIN REACH.
--- NOTE | 2019-06-15 04:08 | NUR ---
PT RESTING IN BED, EYES CLOSED, BREATHS EVEN, UNLABORED, NO NEEDS AT THIS TIME, CALL LIGHT WITHIN REACH. FALL PRECAUTIONS IN PLACE.
--- NOTE | 2019-06-15 05:06 | NUR ---
PT AOX4, APPROPRIATE, SWING BED, INDEPENDENT IN ROOM WITH FWW, TOLERATING WELL, PT RECEIVED PRN TYLENOL X1 THIS SHIFT RELATED TO NECK PAIN. PT HAS BEEN ABLE TO REST WELL THIS SHIFT SINCE. ON RA, VSS, USES CALL LIGHT APPROPRIATELY.
--- NOTE | 2019-06-15 07:48 | NUR ---
PATIENT SITTING UP ON THE EDGE OF THE BED. SETS UP BATHROOM FOR SHOWER. CALL LIGHT WITHIN REACH. NO OTHER NEEDS AT THIS TIME
--- NOTE | 2019-06-15 09:53 | NUR ---
PATIENT SITTING UP IN CHAIR. VITAL SIGNS AND I&O DONE. PATIENT TOOK A SHOWER. CALL LIGHT WITHIN REACH. NO OTHER NEEDS AT THIS TIME
--- NOTE | 2019-06-15 11:07 | NUR ---
PATIENT RESTING IN BED. PATIENT'S LUNCH ORDERED. CALL LIGHT WITHIN REACH. NO OTHER NEEDS AT THIS TIME
--- NOTE | 2019-06-15 13:45 | NUR ---
PATIENT SITTING UP IN CHAIR. I&O DONE. CALL LIGHT WITHIN REACH. NO OTHER NEEDS AT THIS TIME
--- NOTE | 2019-06-15 16:16 | NUR ---
PT SITTIN UP IN BED WATCHING TV. RESP EVEN AND NON LABORED. PT DENIES NEEDS. PERSONAL SUPPLIES ADN CALL LIGHT WITHIN REACH.
--- NOTE | 2019-06-15 17:38 | NUR ---
PATIENT SITTING UP IN CHAIR. RN IN ROOM. I&O DONE. WATER GIVEN. CALL LIGHT WITHIN REACH. NO OTHER NEEDS AT THIS TIME
--- NOTE | 2019-06-15 19:33 | NUR ---
REPORT RECEIVED, PT RESTING IN BEDSIDE CHAIR, PT DENIES ANY NEEDS AT THIS TIME, CALL LIGHT WITHIN REACH. FALL PRECAUTIONS IN PLACE.
--- NOTE | 2019-06-15 20:15 | NUR ---
EVENING MEDS ADMINISTERED, PT GIVEN PRN TYLENOL PER REQUEST, PT'S VSS, DENIES ANY NEEDS AT THIS TIME, ASSESSMENT COMPLETE, PT REMAINS TO HAVE SMALL LEFT SIDED DROOP, WITH OCCASIONAL SLURRED SPEECH ALTHOUGH PT MENTIONS NOTED IMPROVEMENT WELL IMPROVEMENT IN STRENGTH, PULSES FELT. CALL LIGHT WITHIN REACH. FALL PRECAUTIONS IN PLACE.
--- NOTE | 2019-06-16 00:49 | NUR ---
PT RESTING IN BED, EYES CLOSED, BREATHS EVEN, UNLABORED, NO NEEDS AT THIS TIME, CALL LIGHT WITHIN REACH. FALL PRECAUTIONS IN PLACE.
--- NOTE | 2019-06-16 04:13 | NUR ---
PT RESTING IN BED, EYES CLOSED, BREATHS EVEN, UNLABORED, NO NEEDS AT THIS TIME, CALL LIGHT WITHIN REACH. FALL PRECAUTIONS IN PLACE.
--- NOTE | 2019-06-16 06:04 | NUR ---
PT AOX4, APPROPRIATE, INDPENDENT IN ROOM W/FWW, SBA/FWW IN HALLS, PRN TYLENOL GIVEN X1 RELATED TO NECK PAIN, PT CONTINUES TO HAVE SOME LEFT SIDED DEFICITS, ALTHOUGH IMPROVEMENT NOTED, 2G NA DIET, VSS, USES CALL LIGHT APPROPRIATELY.
--- NOTE | 2019-06-16 10:02 | NUR ---
PT SITTING UP IN CHAIR EATING BREAKFAST. PT ON RA, RESP EVEN AND NON LABORED. PT REPORTS SHE HAS WORKED WITH PT THIS AM ALREADY. PT DENIES PAIN AT THIS TIME. PERSONAL SUPPLIES AND CALL LIGHT WITHIN REACH.
--- NOTE | 2019-06-16 13:10 | NUR ---
PROGRESS NOTE: PT STILL HAS NOTICEABLE WEAKNESS TO LEFT ARM/LEG. PER PT REPORT SHE FEELS SHE IS "GETTING STRONGER". SLIGHT SLURRED SPEECH NOTED. PT TOLERATING DIET WELL. GOOD URINE OUTPUT, VS STABLE. PT/OT/ST IN USE. PT CALLS STAFF APPROP.
--- NOTE | 2019-06-16 17:40 | NUR ---
PT A&OX3. ON RA. TOLERATING DIET. LEFT SIDED WKNS, LEFT FACIAL DROOP, SLURRED SPEECH. PT/OT/ST; IMPROVING WITH STRENGHT. 1PA WITH WALKER. CALLS STAFF APPROP. NO IV SITE.
--- NOTE | 2019-06-16 19:30 | NUR ---
PT RESTING IN BEDSIDE CHAIR, NO NEEDS AT THIS TIME, CALL LIGHT WITHIN REACH.
--- NOTE | 2019-06-16 20:33 | NUR ---
EVENING MEDS ADMINISTERED, PT RESTING IN BED, C/O 3/10 NECK PAIN/ SORENESS, PT GIVEN PRN TYLENOL PER EMAR. PT DENIES FURTHER NEEDS AT THIS TIME. ASSESSMENT COMPLETE. PT AOX4, STRENGTH IMPROVING. CALL LIGHT WITHIN REACH. FALL PRECAUTIONS IN PLACE.
--- NOTE | 2019-06-17 00:30 | NUR ---
PT RESTING IN BED, EYES CLOSED, BREATHS EVEN, UNLABORED, NO NEEDS AT THIS TIME, CALL LIGHT WITHIN REACH.
--- NOTE | 2019-06-17 02:00 | NUR ---
PT RESTING IN BED, EYES CLOSED, BREATHS EVEN, UNLABORED, NO NEEDS AT THIS TIME, CALL LIGHT WITHIN REACH.
--- NOTE | 2019-06-17 07:30 | NUR ---
PT SITTING UP IN BED AT THIS TIME, RESP EVEN AND NON LABORED. PT DENIES NEEEDS AT THIS TIME. PERSONAL SUPPLIES AND CALL LIGHT WITHIN REACH. NO NEEDS AT THIS TIME.
--- NOTE | 2019-06-17 11:09 | NUR ---
PATIENT IN CHAIR PUTTING SOCKS ON. FRESH WATER GIVEN. CALL LIGHT IN REACH. NO FURTHER NEEDS AT THIS TIME.
--- NOTE | 2019-06-17 12:39 | NUR ---
[employer] FAXED. PATIENT REPORTS WILL HAVE DAUGHTER PICK HER UP TOMORROW AND IS LOOKING FORWARD TO BEING DISCHARGED HOME. WILL HAVE DAUGHTER COME FROM [employer] TO PICK HER UP. SHE REPORTS SHE WILL HAVE GOOD NEIGHBORS TO CHECK ON HER AND SHE HAS A WALKER TO USE AT HOME. REPORTS NO NEEDS AT THIS TIME.
--- NOTE | 2019-06-17 17:30 | NUR ---
PT SITTING UP IN CHAIR EATING DINNER. PT ON RA, RESP EVEN AND NON LABORED. PT DENIES PAIN. PERSONAL SUPPLIES AND CALL LIGHT WITHIN REACH. NO NEEDS AT THIS TIME.
--- NOTE | 2019-06-17 17:42 | NUR ---
INDEPENDENT IN ROOM. LEFT SIDED WEAKNESS; IMPROVING. LEFT FACIAL DROOP AND SLURRED SPEECH; IMPROVED. 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 PT/OT/ST.
--- NOTE | 2019-06-17 19:15 | NUR ---
CHARGE NURSE REPORT RECEIVED. NO NEEDS AT THIS TIME.
--- NOTE | 2019-06-17 20:06 | NUR ---
RECEVEIVED REPORT FROM DAY SHIFT RN. PATIENT IS UP TO RECLINER. PATIENT DENIES ANY NEEDS CALL LIGHT IN REACH.
--- NOTE | 2019-06-17 21:55 | NUR ---
PATIENT ASSESMENT COMPLETED. PATIENT IS RESTING IN BED WATCHING TV. PATIENTS EVENING MEDICATIONS GIVEN PER ORDER. PATIENT RATES PAIN AT A 4/10 IN HER NECK. PATIENT DENIES THE NEED FOR ANY INTERVENTION AT THIS TIME. PATIENT REFUSED SENNA AT THIS TIME. PATIENT EDUCATED ON SENNA. PATIENT CONTINUES TO REFUSE. PATIENT DENIES ANY FURTHER NEEDS. CALL LIGHT IN REACH.
--- NOTE | 2019-06-17 22:50 | NUR ---
PATIENT IS RESTING IN BED WATCHING TV. PATIENT DENIES ANY NEEDS. CALL LIGHT IN REACH.
--- NOTE | 2019-06-18 01:08 | NUR ---
PATIENT IS RESTING IN BED WITH EYES CLSOED, RR 16. CALL LIGHT IN REACH.
--- NOTE | 2019-06-18 02:55 | NUR ---
PATIENT IS RESTING IN BED WITH EYES CLOSED, RR 16. CALL LIGHT IN REACH.
--- NOTE | 2019-06-18 05:11 | NUR ---
PATIENT IS ON A REGULAR DIET, TOELRATING IT WELL, AND NO NAUSEA NOTED. PATIENT IS A SBA/INDEPENDENT IN THE ROOM. PATIENT IS WORKING WITH ST/OT/PT. PATIENT HAS NO IV. PATIENT IS ON SWING BED STATUS. NO PAIN NOTED. PATIENT IS AAOX3 AND USES CALL LIGHT APPROPRIATELY.
--- NOTE | 2019-06-18 06:09 | NUR ---
PATIENT IS RESTING IN BED WATCHIHNG TV. PATIENTS INTAKE AND OUPUT RECORDED. PATIENT DENIES ANY NEEDS. CALL LIGHT IN REACH.
--- NOTE | 2019-06-18 09:15 | NUR ---
SPOKE WITH PATIENT IN ROOM. PATIENT AWARE SHE IS DISCHARGING TODAY. HER DAUGHTER IS COMING TO TAKE HER HOME AROUND 1130. ENCOURAGED HER TO EAT LUNCH BEFORE SO SHE DOESN'T HAVE TO WORRY ABOUT THAT. SHE STATES SHE WILL. SHE STATES HER DAUGHTER IS GOING TO STOCK UP HER HOUSE WITH [employer] AND WILL BE HELPING HER FOR AWHILE. SHE UNDERSTANDS SHE CANNOT DRIVE UNTIL SHE IS CLEARED BY PCP, SHE STATES HER APPOINTMENT IS 06/26. SHE STATES SHE WILL ASK FAMILY OR FRIENDS FOR HELP WITH TRANSPORTATION. DID EDUCATE HER ON GETTING [employer] AT [employer] FOR [employer]. SHE WANTS TO DO [facility]PAT[facility] TH[facility]AP[facility] AT [facility]. DISCUSSED I WILL SEND ORDER AND NOTES THERE AND THEY WILL CALL HER FOR SCHEDULE OF APPOINTMENTS. DISCUSSED FOR HER TO MAKE SURE SHE UNDERSTANDS ALL DISCHARGE INSTRUCTIONS, ESPECIALLY MEDICATIONS AND SIDE EFFECTS. SHE FEELS CONFIDENT SHE UNDERSTANDS EVERYTHING SHE IS TAKING AT THIS TIME. DISCUSSED SHE CAN CALL OUR DEPARTMENT AFTER DISCHARGE IF SHE HAS QUESTIONS OR CONCERNS. NO FURTHER QUESTIONS AT THIS TIME. CONTACT INFORMATION GIVEN.
[2019-06-18] MEDS ORDERED: ATORVASTATIN CA20 MG PO (11:34)
[2019-06-18] MEDS ORDERED: AMLODIPINE BESY10 MG PO (11:35)
[2019-06-18] MEDS ORDERED: LOSARTAN POTASS25 MG PO (11:35)
[2019-06-18] MEDS ORDERED: ASPIRIN EC81 MG PO (11:36)
--- NOTE | 2019-06-19 06:30 | NUR ---
FAXED OUTPATIENT THERAPY ORDERS AND CLINICALS TO [facility] [phone]. FAX CONFIRMATION RECEIVED 06/18/19 548PM. SPOKE WITH JADEN THIS MORNING AT OFFICE, THEY HAVE RECEIVED AND WILL SET UP THERAPY WITH PATIENT.
== END 2019-06-18 12:30 | disposition home or self-care (01) | DRG 57 ==
LOC: MS 12:00
PROVIDERS: ADMIT Internal Medicine
DX: I69.334 Monoplegia of upper limb following cerebral infarction affecting left non-dominant side (principal); Q21.1 Atrial septal defect; I69.392 Facial weakness following cerebral infarction; R26.81 Unsteadiness on feet; I10 Essential (primary) hypertension; C50.912 Malignant neoplasm of unspecified site of left female breast; I67.1 Cerebral aneurysm, nonruptured; Z88.2 Allergy status to sulfonamides; Z79.810 Long term (current) use of selective estrogen receptor modulators (SERMs)
CPT/HCPCS: 92526; 97110; 97112; 97116; 97162; 97166; 97530; 97535